=== PATIENT | male | born 1980 | race Two or more races ===

== ENCOUNTER 2024-06-21 11:08 | Outpatient (AMB) | payer MEDICAID, SELFPAY ==
--- NOTE | 2024-06-21 11:04 | PD.ORTHTELE ---
Med/Allergies Allergies & Medications Allergies Sulfa (Sulfonamide Antibiotics) Allergy (Verified 06/21/24 11:04) warfarin [From Athrombin-K] Allergy (Verified 06/21/24 11:04) Medication Reconciliation furosemide 20 mg tablet (Lasix) 20 mg PO Q OTHER DAY 04/12/24 [History Confirmed 06/21/24] meloxicam 7.5 mg tablet 7.5 mg PO QDAY #45 tabs 04/12/24 [Rx Confirmed 06/21/24] oxycodone-acetaminophen 2.5 mg-325 mg tablet (Percocet) 1 tab PO TID PRN 04/12/24 [History Confirmed 06/21/24] celecoxib 200 mg capsule 200 mg PO BID PRN pain #60 caps 06/21/24 [Rx] Subjective Visit Visit for: follow up visit, knee and x-rays (results) Immunization / Flu Flu Vaccine in the Last 12 Months: No Flu Vaccine Exclusion Criteria: Refused by Patient History of Present Illness Chief complaint: Right knee pain Ean is a pleasant 44-year-old male with right knee pain. He had a septic arthritis in July. He was washed out with arthroscopic surgery immediately. He is ports consistent right knee pain since then. His BMI is 54. He has not had any conservative treatment. Pain Pain level (0-10): 8 Pain duration: constant Pain location: inside (medial) Pain quality: dull and aching Pain timing: night, increases with activity and stairs Associated signs & symptoms: none Ambulatory data Ambulatory device: none Walking distance (minutes): 5 Treatments Improvement with previous injections: No Improvement with PT: No Improvement with NSAIDS: no Review of Systems Review of Systems: All systems negative unless otherwise noted in HPI. Assessment and Plan Problem List (1) Septic arthritis of knee, right: Status: Acute Plan: Patient is a pleasant 44-year-old male with septic arthritis of the right knee status post arthroscopic washout and long-term antibiotics. He has persistent right knee pain. I discussed with him that he likely had the struct of enzymes in his knee that have caused a lot of cartilage loss. We discussed the weight loss in great detail. We also prescribed him an anti-inflammatory. X-rays demonstrate severe arthritis. We want him to get an ESR and CRP. He should continue to lose weight as he is not a surgical candidate currently. He reports the meloxicam is helping quite a bit and he would like a refill Office Procedures GNS Level of Care Nursing/Assessment Patient Status: Established Patient Nursing Assessment/Reassesment: Medication Reconciliation, Update PMH in EMR and Vital Signs Coordination of Care: Complex Care and Chronic Disease 1-5, Education Complex Pt/Fam, Consent,records obtained, informed consent, Results/Orders obtained and Staff clarify orders Established Patient Charge Established Patient Point Assignment: 95 Telehealth Telemed Phone/Video with patient at home & Dr,PA,[employer] LEADER: Yes
== END 2024-06-21 11:08 | disposition home or self-care (01) ==
LOC: HODSRG 11:08
PROVIDERS: PCP Internal Medicine; Referring Provider Internal Medicine; Supervising Provider Orthopaedic Surgery Adult Reconstructive Orthopaedic Surgery; Visit Provider Orthopaedic Surgery Adult Reconstructive Orthopaedic Surgery
DX: M00.9 Pyogenic arthritis, unspecified (principal); M25.561 Pain in right knee
CPT/HCPCS: 99212; G0463